=== PATIENT | female | born 1995 | race Caucasian/White ===

== ENCOUNTER 2024-05-01 12:50 | Emergency (ER) | payer BC, SELFPAY ==
[2024-05-01 13:00] VITALS: BP 145/89
--- NOTE | 2024-05-01 13:46 | ED.GENMED ---
History of Present Illness
General
Chief Complaint: Fainting/Passed Out
Time Seen by Provider: 05/01/24 13:35
History of Present Illness
History of Present Illness:
28-year-old female history of subarachnoid hemorrhage, ovarian cyst, anemia, [employer] shunt presenting status post syncopal episode. Patient states that she went to walk outside following her mom when she began to feel very hot and dizzy. Patient states
that she laid on the ground and then subsequently had a syncopal episode witnessed by her mom. Mother states that patient was out for a few seconds and then regained consciousness. Mother denies any seizure-like activity. Patient denies any
headaches, chest pain, shortness of breath, or abdominal pain. Patient denies any numbness, weakness or tingling. Patient states that she started her period on 04/26. Patient denies any menorrhagia. Pt is not on any blood thinners. Pt denies any
symptoms at this time, states she is hungry.
Past History
Past History
ED Past Medical History: Other (anemia, celiac disease, ovarian cysts, chronic left portal vein thrombosis.)
ED Past Surgical History: Brain
Social History
Tobacco: Non-smoker
Alcohol: None
Drug: None
Personal: Single
Living: with family
Employment: Employed
Family History
Family History: Other (Noncontributory)
Phy Exam
Physical Exam
Physical Exam:
General: Alert, no acute distress
Head: NCAT
Eyes: clear conjunctiva, EOMI, PERRLA, no nystagmus
Neck: supple
Cardiac: regular rate and rhythm, no murmur
Lungs: clear to auscultation bilaterally. No wheezes, rales, or rhonchi. Speaking full unlabored sentences. No respiratory distress.
Abdomen: soft, nondistended nontender. No rebound or guarding.
MSK: no lower extremity edema bilaterally. No deformity
Skin: warm, dry
Neuro: Alert and oriented x3. Cranial nerves II through XII grossly intact no focal deficits. No facial droop. No slurred speech. 5-5 strength bilateral upper and lower extremity. Normal [id number].
Course
Orders/Labs/Results
Orders:
Orders
05/01/24 13:04
Electrocardiogram (*1) Urgent
Reason for Study: Syncope
EKG- Treatment ONCE
05/01/24 13:46
CT Head W/o Iv Contrast Urgent
Comment:
Reason For Exam: hx subarachnoid, syncope
Test Result ONCE
05/01/24 14:32
BMP [Basic Metabolic Panel] Urgent
CBC/With Diff [Complete Blood Count/With Diff] Urgent
Abnormal Lab Results
05/01/24
14:32
MCH 32.8 H pg
(27.0-31.0)
05/01/24 14:32
05/01/24 14:32
Vital Signs
Initial and Last Documented VS:
Initial Vital Signs
Temp Pulse Resp BP Pulse Ox
99.0 F 98 16 145/89 98
05/01/24 13:00 05/01/24 13:00 05/01/24 13:00 05/01/24 13:00 05/01/24 13:00
Last Documented Vital Signs
Temp Pulse Resp BP Pulse Ox
99.0 F 89 12 121/82 98
05/01/24 13:00 05/01/24 17:15 05/01/24 17:15 05/01/24 17:00 05/01/24 17:15
MDM/Problems Addressed
MDM/Problems Addressed:
28-year-old female history of anemia, subarachnoid hemorrhage, [employer] shunt presenting status post syncopal episode. Pt denies any headache, chest pain, or abdominal pain. Neurologically intact. DDx includes but not limited to orthostatic syncope,
vasovagal syncope, anemia, subarachnoid, arrhythmia
Results reviewed. Hemoglobin 14.4. Electrolytes kidney pressure within normal limits. CT head shows no intracranial hemorrhage. EKG shows normal sinus rhythm at 92 bpm with IA 130 QTc 400 no acute ischemic changes. Vital signs stable. Discussed
results with patient and mother at bedside. Higher suspicion for orthostatic syncope, will discharge PCP follow up
*Critical Care Note
Total Time (30-74mins, 75-104mins- exclusive of procedures): Not Applicable
ED Attending Note
-
Portions of this chart may have been created with voice recognition software.� Occasional wrong word or��sound alike� substitutions may have occurred due to the inherent limitations of voice recognition software.
Discharge Plan
Departure
Patient Disposition: Home (Routine Discharge)
Date of Disposition: 05/01/24
Time of Disposition: 17:05
Patient with high blood pressure during this ER visit?: Yes
Discharge Problem:
Syncope
Prescriptions:
No Action
L norgest/e.estradiol-e.estrad [Ashlyna] 1 EACH tablets,dose pack,3 month
1 tab PO DAILY
ferrous sulfate [FeroSul] 325 MG tablet
325 mg PO DAILY
Referrals:
Danny Manuel I., DO [Family Provider] -
Activity Restrictions/Additional Instructions:
Drink water, stay hydrated
Follow up with primary care doctor in 1-2 days
Return to the emergency department for headache, chest pain or new/worsening symptoms
Interventions
Interventions:
*Risk Screen - Suicide Last Done: 05/01/24 14:35
*General Assessment Last Done: 05/01/24 14:34
*Neglect/Abuse Screening Last Done: 05/01/24 14:35
ED- Fall Risk Assessment Last Done: 05/01/24 17:30
*ED COVID-19 Vaccine History Last Done: 05/01/24 17:30
*Nursing Disposition Last Done: 05/01/24 17:30
ED- Cardiac Assessment Last Done: 05/01/24 14:30
ED- Neurological Assessment Last Done: 05/01/24 14:30
Discharge Date and Time
Discharge Date/Time: 05/01/24 17:30
Print Language: DANISH
[2024-05-01 14:14] VITALS: BP 133/93
[2024-05-01 14:33] VITALS: BMI 20.9
[2024-05-01 14:47] LABS: % Eosinophils 3.7 % (0-6); % Immature Granulocytes 0.3 % (0-0.5); % Lymphocytes 22.8 % (20.5-51.1); % Monocytes 8.6 % (1.7-9.3); % Neutrophils 63.6 % (42.2-75.2); Absolute Basophils 0.1 10^3/uL (0-0.2); Absolute Eosinophils 0.3 10^3/uL (0-0.7); Absolute Lymphocytes 1.6 10^3/uL (1.2-3.4); Absolute Monocytes 0.6 10^3/uL (0.1-0.6); Absolute Neutrophils 4.3 10^3/uL (1.4-6.5); Hematocrit 41.7 % (37.0-47.0); Hemoglobin 14.4 g/dL (12.0-16.0); Mean Corp Hgb Conc. 34.5 g/dL (33.0-37.0); Mean Corpuscular Hgb 32.8 pg (27.0-31.0); Mean Platelet Volume 9.1 fL (7.4-10.4); Nucleated Red Blood Cells % 0 %; Platelet Count 261 10^3/uL (130-400); Red Blood Cell Count 4.39 10^6/uL (4.20-5.40); Red Cell Dist. Width 12.2 % (11.5-14.5); White Blood Cell Count 6.8 10^3/uL (4.8-10.8)
[2024-05-01 15:00] VITALS: BP 136/86
[2024-05-01 15:05] LABS: Blood Urea Nitrogen 15 mg/dl (7-17); Calcium 9.8 mg/dl (8.4-10.2); Carbon Dioxide 23 mmol/L (22-30); Chloride 107 mmol/L (98-107); Estimated Creatinine Clearance 104 ml/min; Glucose 95 mg/dl (70-99); Potassium 4.4 mmol/L (3.5-5.1); Sodium 138 mmol/L (135-145); eGFR > 60.00
[2024-05-01 16:00] VITALS: BP 121/88
[2024-05-01 17:00] VITALS: BP 121/82
== END 2024-05-01 17:30 | disposition home or self-care (01) ==
LOC: EMR 12:50
PROVIDERS: EMERGENCY PHYSICIAN Emergency Medicine; FAMILY PHYSICIAN Internal Medicine
DX: R55 Syncope and collapse (principal); D64.9 Anemia, unspecified; K90.0 Celiac disease; Z86.79 Personal history of other diseases of the circulatory system; Z98.2 Presence of cerebrospinal fluid drainage device
CPT/HCPCS: 99284; 70450; 80048; 85025; 93005